=== PATIENT | male | born 1945 | race Caucasian/White ===

== ENCOUNTER 2019-08-21 16:14 | Observation (INO) | payer BC, MEDICARE ==
[~2019-08-21] VITALS: Ht 160 cm; Wt 79.5 kg
[2019-08-21] MEDS ORDERED: DYN500C PO (16:59)
[2019-08-21] MEDS ORDERED: FURO40TA4 PO (16:59)
[2019-08-21] MEDS ORDERED: CARV25TA2 PO (16:59)
[2019-08-21] MEDS ORDERED: ALPR0.257 PO (16:59)
[2019-08-21] MEDS ORDERED: NITR0.4T48 PO (16:59)
[2019-08-21] MEDS ORDERED: NITR1PAT28 TOP (16:59)
[2019-08-21] MEDS ORDERED: POTA20TA19 PO (16:59)
[2019-08-21] MEDS ORDERED: ATOR20TA66 PO (16:59)
[2019-08-21] MEDS ORDERED: ASPI-845 PO (16:59)
[2019-08-21] MEDS ORDERED: ENAL-75 PO (16:59)
[2019-08-21] MEDS ORDERED: CLOP75TA35 PO (16:59)
[2019-08-21] MEDS ORDERED: ISOS30TA6 PO (16:59)
[2019-08-21] MEDS ORDERED: normal saline 1000ml 1,000 ML IV SCH (17:04)
[2019-08-21] MEDS ORDERED: ondansetron/PF 4mg/2ml inj IV PRN (17:05)
[2019-08-21] MEDS ORDERED: acetaminophen 325mg tablet PO PRN (17:05)
[2019-08-21] MEDS ORDERED: morphine 2 MG/ML inj. syringe IV PRN ×2 (17:05)
[2019-08-21] MEDS ORDERED: mag hydrox/Alum hydrox/simeth 30ml oral suspension PO PRN (17:05)
[2019-08-21] MEDS ORDERED: magnesium hydroxide 30ml (MOM) UD suspension PO PRN (17:05)
--- NOTE | 2019-08-21 17:35 | NUR ---
ATTEMPTED TO CALL REPORT
--- NOTE | 2019-08-21 17:45 | NUR ---
REPORT TO MONTSERRAT PRICE
--- NOTE | 2019-08-21 17:50 | NUR ---
Problems reprioritized. Patient report given, questions answered & plan of care reviewed with heavenly canchola rn.
[2019-08-21 18:00] VITALS: BP 127/82
--- NOTE | 2019-08-21 18:00 | NUR ---
Patient in room MED 310. I have received report from MONTSERRAT PRICE and had the opportunity to ask questions and assume patient care.
--- NOTE | 2019-08-21 18:00 | NUR ---
PT ARRIVED ON UNIT
--- NOTE | 2019-08-21 18:40 | NUR ---
Problems reprioritized. Patient report given, questions answered & plan of care reviewed with ALBERT Starks.
[2019-08-21] MEDS ORDERED: ALPRAZolam 0.25mg tablet PO PRN (18:55)
[2019-08-21 19:28] LABS: BASOPHILS # (AUTO) 0.1 X10'3 (0-0.2); BASOPHILS % (AUTO) 0.6 % (0-1); EOSINOPHILS # (AUTO) 0.1 X10'3 (0-0.9); EOSINOPHILS % (AUTO) 1.4 % (0-6); HEMATOCRIT 49.3 % (42.0-52.0); HEMOGLOBIN 16.9 g/dl (14.0-17.9); LYMPHOCYTES # (AUTO) 1.8 X10'3 (1.1-4.8); LYMPHOCYTES % (AUTO) 19.6 % (21-51); MEAN CORPUSCULAR HEMOGLOBIN 32.6 PG (27.0-31.0); MEAN CORPUSCULAR HGB CONC 34.3 g/dL (33.0-36.5); MEAN CORPUSCULAR VOLUME 95.2 FL (78-98); MEAN PLATELET VOLUME 8.4 FL (7.4-10.4); MONOCYTES # (AUTO) 0.5 X10'3 (0-0.9); MONOCYTES % (AUTO) 5.1 % (2-12); NEUTROPHILS # (AUTO) 6.7 X10'3 (1.8-7.7); NEUTROPHILS % (AUTO) 73.3 % (42-75); PLATELET COUNT 171 X10'3 (140-440); RED BLOOD COUNT 5.18 X10'6 (4.70-6.10); RED CELL DISTRIBUTION WIDTH 14.3 % (11.5-14.5); WHITE BLOOD COUNT 9.2 X10'3 (4.5-11.0)
[2019-08-21 19:42] LABS: ALANINE AMINOTRANSFERASE 75 U/L (12-78); ALBUMIN 3.6 G/DL (3.4-5.0); ALBUMIN/GLOBULIN RATIO 0.9 (1.1-1.5); ALKALINE PHOSPHATASE 115 IU/L (46-116); ANION GAP 10 (8-16); ASPARTATE AMINO TRANSFERASE 38 U/L (10-37); BILIRUBIN,TOTAL 0.8 MG/DL (0.1-1.0); BLOOD UREA NITROGEN 17 MG/DL (7-18); BUN/CREATININE RATIO 11.8 (5.4-32.0); CALCIUM 8.9 MG/DL (8.5-10.1); CHLORIDE 105 MMOL/L (99-107); CREATININE 1.44 MG/DL (0.60-1.10); GLUCOSE 101 MG/DL (70-104); POTASSIUM 3.9 MMOL/L (3.5-5.1); SODIUM 139 MMOL/L (135-145); TOTAL CARBON DIOXIDE 24.1 MMOL/L (24-32); TOTAL PROTEIN 7.7 G/DL (6.4-8.2); eGFR 48 ML/MIN
[2019-08-21] MEDS ORDERED: dicloxacillin 500 MG capsule PO SCH (20:00)
[2019-08-21] MEDS: heparin, porcine 5000 units/ml vial SQ SCH (21:47)
[2019-08-21] MEDS: carVEDilol 12.5mg tablet PO SCH (21:48)
[2019-08-21 22:00] VITALS: BP 119/65
[2019-08-22] VITALS (14 sets, daily range): BP systolic 101–135; BP diastolic 46–91
[2019-08-22 01:32] LABS: BASOPHILS # (AUTO) 0.1 X10'3 (0-0.2); BASOPHILS % (AUTO) 0.7 % (0-1); EOSINOPHILS # (AUTO) 0.1 X10'3 (0-0.9); EOSINOPHILS % (AUTO) 1.6 % (0-6); HEMATOCRIT 47.4 % (42.0-52.0); HEMOGLOBIN 16.5 g/dl (14.0-17.9); LYMPHOCYTES # (AUTO) 1.9 X10'3 (1.1-4.8); LYMPHOCYTES % (AUTO) 20.2 % (21-51); MEAN CORPUSCULAR HEMOGLOBIN 32.5 PG (27.0-31.0); MEAN CORPUSCULAR HGB CONC 34.7 g/dL (33.0-36.5); MEAN CORPUSCULAR VOLUME 93.7 FL (78-98); MEAN PLATELET VOLUME 8.4 FL (7.4-10.4); MONOCYTES # (AUTO) 0.6 X10'3 (0-0.9); NEUTROPHILS # (AUTO) 6.7 X10'3 (1.8-7.7); NEUTROPHILS % (AUTO) 71.5 % (42-75); PLATELET COUNT 168 X10'3 (140-440); RED BLOOD COUNT 5.06 X10'6 (4.70-6.10); RED CELL DISTRIBUTION WIDTH 14.2 % (11.5-14.5); WHITE BLOOD COUNT 9.3 X10'3 (4.5-11.0)
[2019-08-22 01:38] LABS: ALBUMIN 3.3 G/DL (3.4-5.0); ANION GAP 8 (8-16); BLOOD UREA NITROGEN 18 MG/DL (7-18); BUN/CREATININE RATIO 11.8 (5.4-32.0); CALCIUM 8.7 MG/DL (8.5-10.1); CHLORIDE 105 MMOL/L (99-107); CREATININE 1.53 MG/DL (0.60-1.10); GLUCOSE 128 MG/DL (70-104); POTASSIUM 3.5 MMOL/L (3.5-5.1); SODIUM 138 MMOL/L (135-145); TOTAL CARBON DIOXIDE 25.3 MMOL/L (24-32); eGFR 45 ML/MIN
--- NOTE | 2019-08-22 02:33 | NUR ---
CALLED LAURIE TO REPORT A 6 BEAT RUN OF V-TACH, BUT HE WAS UNABLE TO ANSWER
--- NOTE | 2019-08-22 03:00 | NUR ---
LAURIE CAME BY UNIT AND INFORMED THAT THE 6 BEAT RUN OF V-TACH WAS ACTUALLY PACED WITH WIDE COMPLEX
--- NOTE | 2019-08-22 06:00 | NUR ---
Problems reprioritized. Patient report given, questions answered & plan of care reviewed with MONTSERRAT PRICE [].
--- NOTE | 2019-08-22 07:15 | NUR ---
Patient in room MED 310. I have received report from ALBERT Lindquist and had the opportunity to ask questions and assume patient care.
[2019-08-22] MEDS ORDERED: potassium chloride 10mEq ER tablet PO SCH (08:00)
[2019-08-22] MEDS ORDERED: clopidogrel 75mg tablet PO SCH (08:00)
[2019-08-22] MEDS ORDERED: isosorbide mononitrate 30mg tab.SR.24H PO SCH (08:00)
[2019-08-22] MEDS ORDERED: aspirin 81mg tablet.DR PO SCH (08:00)
[2019-08-22] MEDS ORDERED: atorvastatin 20mg tablet PO SCH (08:00)
[2019-08-22] MEDS ORDERED: aspirin 325mg tablet, delayed-release (Ecotrin) PO SCH (08:00)
[2019-08-22] MEDS ORDERED: furosemide 20MG tablet PO SCH (08:00)
[2019-08-22] MEDS ORDERED: lisinopril 5mg tablet PO SCH (08:00)
[2019-08-22] MEDS ORDERED: nitroGLYCERIN 0.4mg SUBLingual tab SL PRN (08:15)
[2019-08-22] MEDS ORDERED: metoprolol tartrate 1mg/ml inj IV PRN (08:15)
[2019-08-22] MEDS ORDERED: regadenoson 0.4mg/5ml syringe IV ONE (08:15)
[2019-08-22] MEDS ORDERED: aminophylline 250mg/10ml inj. IV PRN (08:15)
[2019-08-22] MEDS: heparin, porcine 5000 units/ml vial SQ SCH (08:51)
[2019-08-22] MEDS ORDERED: pneumococcal 23-VAL P-sac vacc 25 mcg/0.5ml vial IMVAC ONE (11:50)
[2019-08-22] MEDS ORDERED: FLU VACC QS 2019-20 (6 MOS UP) 60 MCG/0.5 ML VIAL IMVAC ONE (11:50)
[2019-08-22] MEDS: carVEDilol 12.5mg tablet PO SCH (13:55)
--- NOTE | 2019-08-22 14:11 | NUR ---
Ora abraham, notified Request okay to feed patient. PAGER ID: [phone] MESSAGE: [id number] Manjit Hoang resulted, okay to feed? [place] [phone] Addendum: 08/22/19 at 1434 by Nadira Nice RN [id number] Received return call, okay to let patient eat. Also, please obtain copy of pt's most recent ECHO and progress report from Dr. Melendez's office. mail clerk billsclerk C[place] assisting with procurement of these documents.
--- NOTE | 2019-08-22 17:17 | NUR ---
talked with dr. dave,relayed info to ,prescription phoned into [facility] for protonix,reviewed all discharge instructions,medications,need for f/u appts..iv x2 removed from [facility] and [facility],both sites clear,pt discharged home via wheelchair with family and all belongings
== END 2019-08-22 17:00 | disposition home or self-care (01) ==
LOC: ER 16:15 → ED HOLD 17:06 → MED 3N 18:44
PROVIDERS: ADMIT Family Medicine; ATTEND Family Medicine
DX: R07.89 Other chest pain (principal); T82.7XXA Infection and inflammatory reaction due to other cardiac and vascular devices, implants and grafts, initial encounter; I25.10 Atherosclerotic heart disease of native coronary artery without angina pectoris; I10 Essential (primary) hypertension; E78.5 Hyperlipidemia, unspecified; F41.9 Anxiety disorder, unspecified; Z95.0 Presence of cardiac pacemaker; Z95.1 Presence of aortocoronary bypass graft; Z79.82 Long term (current) use of aspirin; Z79.899 Other long term (current) drug therapy; Y83.8 Other surgical procedures as the cause of abnormal reaction of the patient, or of later complication, without mention of misadventure at the time of the procedure; Y92.89 Other specified places as the place of occurrence of the external cause
CPT/HCPCS: 36415; 78452; 80048; 80053; 84484; 85025; 87081; 93005; 93017; 93306; 96372; 96374; 99284; A9500; G0378; J0280; J1644; J2785; J7030; Q2037